=== PATIENT | male | born 1985 | race Two or more races ===

== ENCOUNTER 2020-09-02 13:17 | Emergency (ER) | payer OTHER ==
[~2020-09-02] VITALS: Ht 170.2 cm; Wt 72.6 kg
[2020-09-02 15:38] VITALS: BP 148/104
[2020-09-02] MEDS ORDERED: cefTRIAXone SOD 1,000 MG VL IM ONE (16:30)
[2020-09-02] MEDS ORDERED: IBUPROFEN 600 MG TAB PO ONE (16:30)
[2020-09-02] MEDS ORDERED: TETANUS-DIPTH-ACEL PERTUSSIS 0.5ML SYR Tdap IM ONE (16:30)
[2020-09-02] MEDS ORDERED: LIDOCAINE 1% HCL (LOCAL ANESTH.) INJ 20ML MDV ONE (16:33)
== END 2020-09-02 17:33 | disposition short-term general hospital (02) ==
LOC: ER 13:17 → EEVIPCON 13:17 → ER 17:00
DX: S61.411D Laceration without foreign body of right hand, subsequent encounter (principal); S60.221D Contusion of right hand, subsequent encounter; X58.XXXD Exposure to other specified factors, subsequent encounter
CPT/HCPCS: 12001; 73130; 90471; 90715; 96372; 99284; J0696; J2001

== ENCOUNTER 2020-09-03 13:46 | Inpatient (IN) | payer OTHER ==
[~2020-09-03] VITALS: Ht 170.2 cm; Wt 75.9 kg
[2020-09-03 14:31] LABS: Basophils # (auto) 0.1 10 ^3/uL (0-0.2); Basophils % (auto) 0.6 % (0.0-2.0); Eosinophils # (auto) 0.2 10 ^3/uL (0-0.8); Eosinophils % (auto) 1.6 % (0.0-7.0); Hematocrit 43.5 % (41.0-53.0); Hemoglobin 15.2 g/dL (13.5-17.5); Lymphocytes # (auto) 1.8 10 ^3/uL (0.4-5.4); Lymphocytes % (auto) 16.2 % (10.0-50.0); Mean Corpuscular Hemoglobin 30.8 pg (28.0-32.0); Mean Corpuscular Hgb Conc. 34.9 g/dL (32.0-36.0); Mean Corpuscular Volume 88.2 fL (80.0-100.0); Monocytes % (auto) 9.3 % (0.0-12.0); Neutrophils % (auto) 72.3 % (37.0-80.0); Nucleated Red Blood Cells % 0.5 %; Platelet Count (auto) 368 10^3/uL (140-450); Red Blood Cells 4.93 10^6/uL (4.5-5.90); Red Cell Distribution Width 12.8 % (11.8-14.3); White Blood Cell 11.1 10^3/uL (4.4-10.8)
[2020-09-03 14:51] LABS: Albumin 3.8 g/dL (3.4-5.0); Calcium 8.7 mg/dL (8.5-10.1); Potassium 4.3 mmol/L (3.5-5.1)
[2020-09-03 14:52] LABS: INR 1.02 (0.9-1.15); Partial Thromboplastin Time 29.7 sec (23.0-31.2)
[2020-09-03 14:55] LABS: BUN/Creatinine Ratio 14.6; Bilirubin, Total 0.6 mg/dL (0.2-1.0)
[2020-09-03] MEDS ORDERED: CLINDAMYCIN 600MG IV 50 ML IV ONE (15:30)
[2020-09-03] MEDS ORDERED: VANCOMYCIN 1GM/250ML 250 ML IV ONE (15:30)
[2020-09-03] MEDS ORDERED: VANCOMYCIN PER PHARMACY 0 MG IV SCH (16:15)
[2020-09-03] MEDS ORDERED: HYDROcodone-ACET 10/325MG TAB PO SCH (18:00)
[2020-09-03] MEDS: VANCOMYCIN 1GM/250ML 250 ML IV SCH (23:18)
[2020-09-04] MEDS: HYDROcodone-ACET 10/325MG TAB PO PRN ×3 (04:05→23:59)
[2020-09-04 05:12] VITALS: BP 115/64
[2020-09-04 05:16] VITALS: BP 115/64
[2020-09-04 08:00] VITALS: BP 112/68
[2020-09-04] MEDS: VANCOMYCIN 1GM/250ML 250 ML IV SCH ×3 (08:00→23:39)
[2020-09-04] MEDS ORDERED: SUCCINYLCHOLINE CHLORIDE 20 MG/ML 10ML VIAL IV ONE (10:48)
[2020-09-04] MEDS ORDERED: ceFAZolin 1GM/50ML 100 ML IV ONE (11:01)
[2020-09-04] MEDS ORDERED: fentaNYL CITRATE 100 MCG/2 ML VL ONE ×2 (11:22→12:34)
[2020-09-04] MEDS ORDERED: MIDAZOLAM HCL 1MG/1ML-2 ML VIAL ONE (11:22)
[2020-09-04] MEDS ORDERED: PROPOFOL 10 MG/ML 20 ML IV ONE (11:31)
[2020-09-04] MEDS: LACTATED RINGER'S 1,000 ML IV SCH ×2 (12:15→21:46)
[2020-09-04] MEDS ORDERED: fentaNYL CITRATE 100 MCG/2 ML VL IV ONE ×3 (12:19→12:57)
[2020-09-04] MEDS ORDERED: hydrALAZINE HCL 20 MG/ML VL IV PRN (12:30)
[2020-09-04] MEDS ORDERED: ONDANSETRON HCL 4 MG/2 ML VIAL IV PRN (12:30)
[2020-09-04] MEDS ORDERED: fentaNYL CITRATE 100 MCG/2 ML VL IV PRN (12:30)
[2020-09-04] MEDS ORDERED: ePHEDrine SULFATE 50 MG/ML AMP IV PRN (12:30)
[2020-09-04] MEDS: SODIUM CHLOR 0.9% PF (SALINE LOCK) 10ML VIAL/SYR IV SCH ×2 (14:00→21:46)
[2020-09-04 17:00] VITALS: BP_SYST 136; BP_SYST 140; BP_DIAS 86; BP_DIAS 88
[2020-09-04] MEDS: ENOXAPARIN SOD 40 MG/0.4 ML SYRINGE SC SCH (18:29)
[2020-09-04] MEDS: AMOXICILLIN/CLAVUL 875 MG TAB PO SCH (21:49)
[2020-09-05 00:46] VITALS: BP 117/61
[2020-09-05] MEDS: SODIUM CHLOR 0.9% PF (SALINE LOCK) 10ML VIAL/SYR IV SCH ×3 (05:15→22:16)
[2020-09-05 05:17] VITALS: BP 138/78
[2020-09-05 08:00] VITALS: BP 111/83
[2020-09-05] MEDS: LACTATED RINGER'S 1,000 ML IV SCH (08:15)
[2020-09-05] MEDS: ENOXAPARIN SOD 40 MG/0.4 ML SYRINGE SC SCH (08:30)
[2020-09-05] MEDS: VANCOMYCIN 1GM/250ML 250 ML IV SCH ×3 (08:30→23:52)
[2020-09-05] MEDS: AMOXICILLIN/CLAVUL 875 MG TAB PO SCH ×2 (11:55→22:17)
[2020-09-05 16:00] VITALS: BP 116/74
[2020-09-05] MEDS: HYDROcodone-ACET 10/325MG TAB PO PRN (20:28)
[2020-09-05 22:00] VITALS: BP 128/71
[2020-09-06] MEDS: HYDROcodone-ACET 10/325MG TAB PO PRN ×2 (01:36→20:09)
[2020-09-06 05:00] VITALS: BP 129/69
[2020-09-06] MEDS: SODIUM CHLOR 0.9% PF (SALINE LOCK) 10ML VIAL/SYR IV SCH ×3 (06:07→21:38)
[2020-09-06 08:00] VITALS: BP 109/68
[2020-09-06] MEDS: ENOXAPARIN SOD 40 MG/0.4 ML SYRINGE SC SCH (08:15)
[2020-09-06] MEDS: VANCOMYCIN 1GM/250ML 250 ML IV SCH ×3 (08:15→23:39)
[2020-09-06] MEDS: AMOXICILLIN/CLAVUL 875 MG TAB PO SCH ×2 (10:00→21:39)
[2020-09-06 16:00] VITALS: BP 124/72
[2020-09-06 22:00] VITALS: BP 119/73
[2020-09-07] MEDS: HYDROcodone-ACET 10/325MG TAB PO PRN ×2 (00:10→09:48)
[2020-09-07 05:00] VITALS: BP 119/70
[2020-09-07] MEDS: SODIUM CHLOR 0.9% PF (SALINE LOCK) 10ML VIAL/SYR IV SCH ×2 (05:20→14:17)
[2020-09-07 08:00] VITALS: BP 129/86
[2020-09-07] MEDS: VANCOMYCIN 1GM/250ML 250 ML IV SCH ×2 (08:29→15:57)
[2020-09-07] MEDS: AMOXICILLIN/CLAVUL 875 MG TAB PO SCH (09:47)
[2020-09-07] MEDS: ENOXAPARIN SOD 40 MG/0.4 ML SYRINGE SC SCH (09:47)
[2020-09-07] MEDS ORDERED: AMOX-277 PO (14:03)
== END 2020-09-07 16:04 | disposition home or self-care (01) | DRG 580 ==
LOC: ER 13:46 → EEVIPCON 16:09 → OVERFLOW 16:09 → WEST WING 09-04 02:50 → CENTRAL 09-04 18:24
PROVIDERS: ADMIT Internal Medicine; ATTEND Internal Medicine
PROC: 0R9U0ZZ Drainage of Right Metacarpophalangeal Joint, Open Approach (ICD-10-PCS; 2020-09-04)
PROC: 0RBW0ZZ Excision of Right Finger Phalangeal Joint, Open Approach (ICD-10-PCS; 2020-09-04)
PROC: 0LQ70ZZ Repair Right Hand Tendon, Open Approach (ICD-10-PCS; 2020-09-04)
PROC: 0LB70ZZ Excision of Right Hand Tendon, Open Approach (ICD-10-PCS; principal; 2020-09-04 11:15)
DX: L03.011 Cellulitis of right finger (principal); L02.511 Cutaneous abscess of right hand; S61.431A Puncture wound without foreign body of right hand, initial encounter; S61.451A Open bite of right hand, initial encounter; F17.210 Nicotine dependence, cigarettes, uncomplicated; S61.210A Laceration without foreign body of right index finger without damage to nail, initial encounter; Z83.3 Family history of diabetes mellitus; W50.3XXA Accidental bite by another person, initial encounter; Z20.822 Contact with and (suspected) exposure to COVID-19
CPT/HCPCS: 36415; 71045; 73200; 80053; 80202; 82565; 85025; 85610; 85652; 85730; 86141; 87070; 87075; 87076; 87205; 87426; 93005; 96365; 96367; G0378; J0330; J0690; J2250; J2704; J3490